=== PATIENT | male | born 1955 | race Caucasian/White ===

== ENCOUNTER 2024-06-27 13:33 | Outpatient (CLI) | payer OTHER, SELFPAY ==
--- NOTE | 2024-06-27 13:30 | DI.RAD_ITS ---
Exam(s) XR FOOT RT COMPLETE EXAM: XR FOOT RT COMPLETE CLINICAL HISTORY: right foot pain M79.671 PAIN RT FOOT. TECHNIQUE: 2D digital imaging was performed. Three views. COMPARISON: No exams were available for comparison FINDINGS: BONES: No acute fracture is present. No bony destructive lesion is seen. Heel spurs. JOINTS: No dislocation present. Mild degenerative changes the 1st MTP joint. No significant hallux valgus. SOFT TISSUE: Normal. IMPRESSION: Heel spurs. 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 DATA REPOSITORY: RADIATION DOSE DELIVERED:
== END 2024-06-27 13:53 ==
PROVIDERS: PCP Internal Medicine; Visit Provider Podiatrist
DX: M77.31 Calcaneal spur, right foot (principal)
CPT/HCPCS: 73630